=== PATIENT | female | born 1970 | race Caucasian/White ===

== ENCOUNTER 2019-11-05 22:17 | Observation (INO) ==
[2019-11-06] MEDS ORDERED: *HR* Succinylcholine 200 MG/10 ML VIAL IVP ONE (00:07)
[2019-11-06] MEDS ORDERED: *HR* FentaNYL (PF) 100 MCG/2 ML VIAL ONE (00:07)
[2019-11-06] MEDS ORDERED: *HR* Rocuronium Bromide 50 MG/5 ML VIAL ONE (00:07)
[2019-11-06] MEDS ORDERED: *HR* Propofol 200 MG/20 ML VIAL IVP ONE (00:07)
[2019-11-06] MEDS ORDERED: Lidocaine -MPF 2% 2 ML VIAL ONE (00:07)
[2019-11-06] MEDS ORDERED: Lidocaine -MPF 4% 5 ML AMPUL ONE (00:07)
[2019-11-06] MEDS ORDERED: Ondansetron 4 MG/2 ML VIAL ONE (00:15)
[2019-11-06] MEDS ORDERED: Dexamethasone 4 MG/ML VIAL ONE (00:15)
[2019-11-06] MEDS ORDERED: Bupivacaine/EPI 1:200k 0.5%PF 30 ML VIAL ONE (00:22)
[2019-11-06] MEDS ORDERED: *HR* Promethazine 25 MG/ML VIAL IVP PRN (00:24)
[2019-11-06] MEDS ORDERED: *HR* HYDROmorphone (PF) 1 MG/ML SYRINGE IVP PRN (00:24)
[2019-11-06] MEDS ORDERED: Albuterol 2.5 MG/3 ML NEBULIZER IH PRN (00:24)
[2019-11-06] MEDS ORDERED: *HR* Meperidine 25 MG/ML SYRINGE IVP PRN (00:24)
[2019-11-06] MEDS ORDERED: Ondansetron 4 MG/2 ML VIAL IVP ONE (00:24)
[2019-11-06] MEDS ORDERED: Acetaminophen IV 1,000 MG/100 ML INFUS..BTL ONE (00:44)
[2019-11-06] MEDS ORDERED: Neostigmine Methylsulfate 3 MG/3 ML SYRINGE ONE (01:31)
[2019-11-06] MEDS ORDERED: *HR* OxyCODONE/APAP 5/325 TABLET PO PRN (03:11)
[2019-11-06] MEDS ORDERED: Ondansetron 4 MG/2 ML VIAL IVP PRN (03:11)
[2019-11-06] MEDS ORDERED: Ketorolac 15 MG/ML VIAL IVP SCH (06:00)
[2019-11-06 06:47] VITALS: BP 113/64
[2019-11-06] MEDS ORDERED: Piperacillin/Tazobactam 3.375 GM in 0.9 % Sodium Chloride Mini Bag 100 ML IVPB SCH (08:00)
== END 2019-11-06 10:15 | disposition home or self-care (01) ==
LOC: 2ANU
PROVIDERS: ADMIT Surgery; ATTEND Surgery